=== PATIENT | male | born 1965 | race Caucasian/White ===

== ENCOUNTER 2022-02-18 11:49 | Emergency (ER) | payer BC, MEDICAID ==
[~2022-02-18] VITALS: Ht 165.1 cm; Wt 72.7 kg
[~2022-02-18 11:49] MED LIST: ALPR-624 PO; FOLI1TAB27 PO; MULT-1085 PO; PANT-47 PO
[2022-02-18] MEDS ORDERED: LORazepam 2 mg/ml vial ONE (11:55)
[2022-02-18] MEDS ORDERED: normal saline 1000ML IV soln IVB ONE (12:00)
[2022-02-18 12:31] LABS: CLARITY,URINE SLIGHTLY CLOUDY (Clear); COLOR,URINE YELLOW (Yellow); GLUCOSE, URINE 250 mg/dl (Neg); KETONES,URINE TRACE mg/dl (Neg); LEUKOCYTE ESTERASE ,URINE NEGATIVE (Neg); NITRITES, URINE NEGATIVE (Neg); OCCULT BLOOD,URINE LARGE (Neg); PROTEIN,URINE 30 mg/dl (Neg); UROBILINOGEN,URINE 0.2 E.U/dL (0.2-1.0)
[2022-02-18 12:35] LABS: UA COLLECTION TYPE STRAIGHT CATH
[2022-02-18 12:36] LABS: ALANINE AMINOTRANSFERASE 16 U/L (12-78); ALKALINE PHOSPHATASE 124 IU/L (46-116); ANION GAP 25 (8-16); ASPARTATE AMINO TRANSFERASE 332 U/L (10-37); BILIRUBIN,TOTAL 1.1 MG/DL (0.1-1.0); BLOOD UREA NITROGEN 10 MG/DL (7-18); BUN/CREATININE RATIO 9.2 (5.4-32.0); CALCIUM 8.5 MG/DL (8.5-10.1); CHLORIDE 95 MMOL/L (99-107); CREATININE 1.09 MG/DL (0.60-1.10); GLUCOSE 201 MG/DL (70-104); POTASSIUM 3.3 MMOL/L (3.5-5.1); SODIUM 134 MMOL/L (135-145); TOTAL PROTEIN 7.9 G/DL (6.4-8.2); eGFR 69 ML/MIN
[2022-02-18 12:38] LABS: ETHANOL < 0.010 GM/DL (0.0-0.010)
[2022-02-18 12:39] LABS: BASOPHILS % (AUTO) 0.3 % (0-1); EOSINOPHILS % (AUTO) 0.1 % (0-6); HEMATOCRIT 45.3 % (42.0-52.0); LYMPHOCYTES # (AUTO) 0.9 X10'3 (1.1-4.8); LYMPHOCYTES % (AUTO) 9.1 % (21-51); MEAN CORPUSCULAR HGB CONC 33.1 g/dL (33.0-36.5); MEAN CORPUSCULAR VOLUME 102.7 FL (78-98); MEAN PLATELET VOLUME 8.8 FL (7.4-10.4); MONOCYTES # (AUTO) 0.5 X10'3 (0-0.9); MONOCYTES % (AUTO) 5.5 % (2-12); NEUTROPHILS # (AUTO) 8.5 X10'3 (1.8-7.7); PLATELET COUNT 151 X10'3 (140-440); RED BLOOD COUNT 4.41 X10'6 (4.70-6.10); RED CELL DISTRIBUTION WIDTH 13.2 % (11.5-14.5)
[2022-02-18 12:39] LABS: URINE AMPHETAMINE SCREEN NEGATIVE (Neg); URINE BARBITUATE SCREEN NEGATIVE (Neg); URINE BENZODIAZEPINES SCREEN POSITIVE (Neg); URINE CANNABINOID SCREEN NEGATIVE (Neg); URINE COCAINE SCREEN NEGATIVE (Neg); URINE METHADONE SCREEN NEGATIVE (Neg); URINE OPIATE SCREEN NEGATIVE (Neg); URINE PHENCYCLIDINE SCREEN NEGATIVE (Neg)
[2022-02-18 12:40] LABS: TOTAL CARBON DIOXIDE 13.9 MMOL/L (24-32)
[2022-02-18 12:43] LABS: RBC,URINE 50-100 /HPF (0-2); SQUAMOUS EPITHELIAL CELL,UR MODERATE /LPF (FEW)
[2022-02-18 12:44] LABS: BACTERIA,URINE FEW /HPF (Neg); TRANSITIONAL EPI CELLS,URINE FEW /HPF; WBC,URINE 0-4 /HPF (0-4)
[2022-02-18] MEDS ORDERED: ringers solution, lactated 1000ml IV soln IV ONE (13:05)
[2022-02-18] MEDS ORDERED: gabapentin 300mg capsule PO ONE (15:55)
[2022-02-18] MEDS ORDERED: GABA-534 PO (16:14)
[2022-02-18 16:37] VITALS: BP 115/81
== END 2022-02-18 16:40 | disposition home or self-care (01) ==
LOC: ER 11:49
DX: F10.139 Alcohol abuse with withdrawal, unspecified (principal); G40.909 Epilepsy, unspecified, not intractable, without status epilepticus; J44.9 Chronic obstructive pulmonary disease, unspecified; I50.9 Heart failure, unspecified; E11.9 Type 2 diabetes mellitus without complications; J45.909 Unspecified asthma, uncomplicated; E78.00 Pure hypercholesterolemia, unspecified; F15.20 Other stimulant dependence, uncomplicated; Z88.5 Allergy status to narcotic agent; Y90.9 Presence of alcohol in blood, level not specified
CPT/HCPCS: 36415; 70450; 71045; 80053; 80305; 80320; 81001; 82140; 85025; 93005; 96360; 99285; J2060; J7030; J7120

== ENCOUNTER 2023-11-05 08:55 | Emergency (ER) | payer BC, MEDICAID ==
[~2023-11-05] VITALS: Ht 170.2 cm; Wt 63.6 kg
[2023-11-05 08:55] VITALS: TEMP 98.6
[~2023-11-05 08:55] MED LIST changes: +GABA-535 PO
[2023-11-05] MEDS: normal saline 1000ML IV soln IVB ONE (09:13)
[2023-11-05 09:19] LABS: EOSINOPHILS % (AUTO) 0.1 % (0-6); HEMOGLOBIN 11.9 g/dl (14.0-17.9); MONOCYTES # (AUTO) 1.5 X10'3 (0-0.9); MONOCYTES % (AUTO) 11.7 % (2-12); NEUTROPHILS # (AUTO) 10.2 X10'3 (1.8-7.7); RED CELL DISTRIBUTION WIDTH 13.3 % (11.5-14.5)
[2023-11-05 09:21] LABS: BASOPHILS % (AUTO) 0.2 % (0-1); HEMATOCRIT 34.7 % (42.0-52.0); LYMPHOCYTES # (AUTO) 1.3 X10'3 (1.1-4.8); LYMPHOCYTES % (AUTO) 9.7 % (21-51); MEAN CORPUSCULAR HEMOGLOBIN 35.4 PG (27.0-31.0); MEAN CORPUSCULAR HGB CONC 34.4 g/dL (33.0-36.5); MEAN PLATELET VOLUME 7.3 FL (7.4-10.4); NEUTROPHILS % (AUTO) 78.3 % (42-75); PLATELET COUNT 587 X10'3 (140-440); RED BLOOD COUNT 3.37 X10'6 (4.70-6.10)
[2023-11-05 09:34] LABS: D-DIMER 3.41 MG/L FEU (0-0.50)
[2023-11-05 09:41] LABS: ALBUMIN 1.9 G/DL (3.4-5.0); ANION GAP 14 (8-16); BLOOD UREA NITROGEN 11 MG/DL (7-18); BUN/CREATININE RATIO 11.2 (10.0-20.0); CALCIUM 8.3 MG/DL (8.5-10.1); CHLORIDE 94 MMOL/L (99-107); CREATININE 0.98 MG/DL (0.60-1.10); GLUCOSE 143 MG/DL (70-104); POTASSIUM 3.5 MMOL/L (3.5-5.1); SODIUM 130 MMOL/L (135-145); TOTAL CARBON DIOXIDE 22.3 MMOL/L (24-32); eCRCL 72 ML/MIN; eGFR 78 ML/MIN
[2023-11-05 11:16] LABS: BILIRUBIN,URINE NEGATIVE (Neg); CLARITY,URINE CLEAR (Clear); COLOR,URINE YELLOW (Yellow); GLUCOSE, URINE NEGATIVE (Neg); KETONES,URINE 15 mg/dl (Neg); LEUKOCYTE ESTERASE ,URINE NEGATIVE (Neg); NITRITES, URINE NEGATIVE (Neg); OCCULT BLOOD,URINE NEGATIVE (Neg); PROTEIN,URINE NEGATIVE (Neg); UROBILINOGEN,URINE 0.2 E.U/dL (0.2-1.0)
[2023-11-05 11:24] LABS: UA COLLECTION TYPE CLN CATCH MIDSTREAM
[2023-11-05 11:30] VITALS: BP 97/61; PULSE 91; RESP 16; O2SAT 94
[2023-11-05] MEDS ORDERED: AZIT250T83 PO (11:42)
== END 2023-11-05 12:03 | disposition left against medical advice (07) ==
LOC: ER 08:55
DX: S40.012A Contusion of left shoulder, initial encounter (principal); R00.0 Tachycardia, unspecified; Z00.01 Encounter for general adult medical examination with abnormal findings; E86.0 Dehydration; J44.9 Chronic obstructive pulmonary disease, unspecified; D3A.00 Benign carcinoid tumor of unspecified site; R40.4 Transient alteration of awareness; M54.2 Cervicalgia; Z88.5 Allergy status to narcotic agent; Z88.8 Allergy status to other drugs, medicaments and biological substances; Z79.899 Other long term (current) drug therapy; Z79.2 Long term (current) use of antibiotics; W19.XXXA Unspecified fall, initial encounter; Y93.89 Activity, other specified; Y92.89 Other specified places as the place of occurrence of the external cause; Y99.8 Other external cause status
CPT/HCPCS: 36415; 70450; 71045; 72125; 73030; 80048; 81003; 84484; 85025; 85379; 93005; 96360; 99285; J7030